=== PATIENT | female | born 1990 | race Caucasian/White ===

== ENCOUNTER → 2018-07-20 | Day surgery (SDC) | payer OTHER ==
[~2018-07-20] VITALS: Ht 160 cm; Wt 68.0 kg
--- NOTE | 2018-07-20 15:13 | Operative Report ---
Operative/Inv Procedure Report Surgery Date: 07/20/18 Name of Procedure: Suction D&C Pre-Operative Diagnosis: Missed at 10 weeks Post-Operative Diagnosis: Same Estimated Blood Loss: 50ml to 100ml Surgeon/Gift Shop Clerk: Roger Baron MD Anesthesia: local monitored anesthesi Specimens: Products of conception, sent to both pathology and for genetics Complications: None Condition: stable Operative/Procedure Note Note: The patient was taken to the operating room and placed in dorsal supine position where anesthesia was obtained without difficulty. She was then placed in dorsal lithotomy position and prepped and draped in the usual sterile fashion. A sterile speculum was then placed in the patient's vagina. A single-tooth tenaculum was applied to the anterior lip of the cervix. 10 cc of 1% lidocaine were then used for paracervical block. The cervix was serially dilated to accommodate a 10 mm suction curette. The curette was carefully inserted to the uterine fundus and attached to the suction tubing. The suction device was then activated and the curette rotated to clear the uterus of the products of conception. 3 passes with the suction curette were performed. The suction curette was then removed and sharp gentle curettage of the uterus was performed and a gritty texture was noted in all 4 quadrants. The suction curette was then reinserted into the patient's uterus and the device activated to clear the uterus of remaining clots and debris. All instruments were then removed from the patient's vagina and excellent hemostasis was noted. All counts were reported to be correct 2 and the patient was taken to the recovery room in stable condition. The products of conception were sent for both genetic analysis and to pathology. Discharge Disposition: Same Day Admissions
== END ==
LOC: STS 01:38
DX: O02.1 Missed abortion (principal)
CPT/HCPCS: 88305; J2001